=== PATIENT | female | born 1945 | race Caucasian/White ===

== ENCOUNTER → 2021-12-15 | Outpatient (CLI) | payer MEDICARE, OTHER ==
[~2021-12-15] VITALS: Ht 163.8 cm; Wt 90.7 kg
[~2021-12-15] MED LIST: ASPIR 8181 MG PO; FLEXERIL 10 MG10 MG PO; GLIMEPIRIDE1 MG PO; HYDROCHLOROTHIA25 MG PO; HYGROTON TAB 2525 MG PO; IBUPROFEN800 MG PO; LISINOPRIL20 MG PO; MESTINON60 MG PO; NORVASC 5 MG TAB5 MG PO; PROTONIX 40 MG40 M1 PO; PROZAC 20 MG CA20 MG PO; SERTRALINE HCL25 MG PO; SYNTHROID137 MCG PO; TOPROL XL 100100 MG PO; ZOCOR80 MG PO
== END ==
LOC: EROP 13:08
DX: U07.1 COVID-19 (principal); Z23 Encounter for immunization; E11.9 Type 2 diabetes mellitus without complications; I10 Essential (primary) hypertension; G70.00 Myasthenia gravis without (acute) exacerbation
CPT/HCPCS: M0247; Q0247

== ENCOUNTER → 2022-01-21 | Outpatient (CLI) | payer MEDICARE, OTHER | LOC: KOH-I 15:07 | DX: R05.9 Cough, unspecified (principal) | CPT/HCPCS: 71046 ==